=== PATIENT | male | born 1960 | race African-American/Black ===

== ENCOUNTER 2020-02-06 04:03 | Emergency (ER) | payer BC, MEDICAID ==
[~2020-02-06] VITALS: Ht 188 cm; Wt 89.5 kg
[2020-02-06 04:09] VITALS: BP 129/81
[2020-02-06] MEDS ORDERED: LORATADINE 10MG TABLET PO SCH (05:15)
[2020-02-06] MEDS ORDERED: LORATADINE/PSEUDOEPHED 5/120MG TABLET 12HR PO SCH (09:00)
== END 2020-02-06 05:28 | disposition home or self-care (01) ==
LOC: ER 04:03
DX: H10.13 Acute atopic conjunctivitis, bilateral (principal); L53.9 Erythematous condition, unspecified; Z20.828 Contact with and (suspected) exposure to other viral communicable diseases; Z98.890 Other specified postprocedural states
CPT/HCPCS: 87635; 99283

== ENCOUNTER 2020-06-05 11:32 | Emergency (ER) | payer MEDICAID ==
[~2020-06-05] VITALS: Ht 190.5 cm; Wt 82.0 kg
[2020-06-05 12:34] LABS: EOSINOPHILS % 3.2 % (0.0-5.0); HEMATOCRIT. 42.2 % (42.0-52.0); HEMOGLOBIN. 14.1 g/dL (14.0-18.0); LYMPHOCYTES % 51.2 % (20.0-50.0); MEAN CORPUSCULAR HEMOGLOBIN 30.3 pg (28.0-32.0); MEAN CORPUSCULAR VOLUME 90.5 fL (80.0-94.0); MEAN PLATELET VOLUME 6.9 fl (7.4-10.4); MONOCYTES % 7.8 % (2.0-8.0); NEUTROPHILS % 36.8 % (40.0-76.0); PLATELET 198 x1000/uL (130-400); RED BLOOD CELL COUNT 4.66 mill/uL (4.7-6.1); RED CELL DISTRIBUTION WIDTH 13.8 % (11.6-14.6)
[2020-06-05 12:41] LABS: CHLORIDE 111 mEq/L (98-107)
[2020-06-05] MEDS ORDERED: TOPUD MT (15:05)
[2020-06-05] MEDS ORDERED: LIDO700A15 TP (15:05)
[2020-06-05] MEDS ORDERED: IBUP-2028 MT (15:05)
[2020-06-05 15:34] VITALS: BP 118/78
== END 2020-06-05 16:10 | disposition home or self-care (01) ==
LOC: ER 11:46
DX: R07.89 Other chest pain (principal); M54.6 Pain in thoracic spine; R20.0 Anesthesia of skin; R53.1 Weakness; Z72.0 Tobacco use
CPT/HCPCS: 36415; 71046; 80048; 84484; 85025; 85379; 93005; 99285

== ENCOUNTER 2024-09-15 07:50 | Emergency (ER) | payer SELFPAY ==
[~2024-09-15] VITALS: Ht 185.4 cm; Wt 85.0 kg
[~2024-09-15 07:50] MED LIST: IBUP-2028 MT; LIDO700A15 TP; TOPUD MT
[2024-09-15 07:55] VITALS: BP 122/87; PULSE 62; RESP 16; TEMP 37.1; O2SAT 98
[2024-09-15] MEDS ORDERED: IBUP-2028 MT (09:41)
== END 2024-09-15 09:54 | disposition home or self-care (01) ==
LOC: ER 07:50
DX: M25.572 Pain in left ankle and joints of left foot (principal); M79.672 Pain in left foot; Z79.899 Other long term (current) drug therapy
CPT/HCPCS: 73610; 73630; 99284